=== PATIENT | female | born 1965 | race Caucasian/White ===

== ENCOUNTER 2019-11-04 02:33 | Day surgery (SDC) | payer OTHER, SELFPAY ==
[2019-10-31 15:45] VITALS: BMI 32.1
--- NOTE | 2019-11-04 07:12 | PM.HPGS ---
History of Present Illness History of Present Illness Consent: Risks, benefits, and alternatives have been discussed and questions answered. Patient agrees to proceed with procedure. Chief complaint: Neoplasm Screening Narrative: Disha Pacheco is a 54 year old W female referred for her 1st screening colonoscopy. Patient is asymptomatic. Her mother colon cancer at age 79. Brother with history of colonic polyps. [facility] Past Medical History Medical History (Updated 11/04/19 @ 07:13 by Homer Garcia MD) Anxiety and depression Surgical History Surgical History (Updated 11/04/19 @ 07:14 by Homer Garcia MD) Status post myomectomy Family History Family History Other Carcinoma of colon Social History Social History Smoking status: Never smoker Second hand tobacco smoke exposure: No Alcohol intake: current Meds Home Medications and Allergies Home Medications Medication Instructions Recorded Confirmed Type alprazolam [Xanax] 1 mg PO HS PRN 10/31/19 10/31/19 History dextroamphetamine-amphetamine 20 mg PO BID 10/31/19 10/31/19 History [Adderall XR] ropinirole 2 mg PO HS 10/31/19 10/31/19 History venlafaxine [Effexor XR] 150 mg PO DAILY 10/31/19 10/31/19 History Allergies Allergy/AdvReac Type Severity Reaction Status Date / Time No Known Allergies Allergy Verified 10/31/19 15:39 Exam Const: Orientation/consciousness: patient oriented x3 Resp: Auscultation: clear to auscultation bilaterally Cardio: Rate: regular rate Rhythm: regular rhythm Heart sounds: no murmurs GI: GI Palp: Yes Soft to palpation, No Tenderness to palpation present (GI), Yes No hepatosplenomegaly present and No Palpable mass present Auscultation: normal bowel sounds Neuro: General: patient oriented x3 and no focal motor deficits Extrem: General: no pedal edema Assessment and Plan Additional Plan screening colonoscopy in high risk patient
[2019-11-04] MEDS: LACTATED RINGERS 1,000 ML 150 ML IV CONT (07:30)
[2019-11-04 07:32] VITALS: BP 111/59; PULSE 72; RESP 18; TEMP 35.9; O2SAT 100; BMI 32.5
--- NOTE | 2019-11-04 07:42 | WPDANESEPPF ---
Anes - Initial Pre Proc Eval Procedure: Operation Date: 11/04/19 08:00 Proposed Procedures p Screening Colonoscopy - Homer Garcia MD Date/Time: 11/04/19 07:42 Surgeon: Homer Garcia MD Pre Op Diagnosis: Neoplasm Screening Patient Data Age: 54 Gender: F Height: 5 ft 4 in Weight: 86.1 kg Last Vital Signs Temp 35.9 C L 11/04/19 07:32 Pulse 72 11/04/19 07:32 Resp 18 11/04/19 07:32 BP 111/59 L 11/04/19 07:32 Pulse Ox 100 11/04/19 07:32 Allergies Allergy/AdvReac Type Severity Reaction Status Date / Time No Known Allergies Allergy Verified 11/04/19 07:30 Home Medications Medication Instructions Recorded Confirmed Type alprazolam [Xanax] 1 mg PO HS PRN 10/31/19 10/31/19 History dextroamphetamine-amphetamine 20 mg PO BID 10/31/19 10/31/19 History [Adderall XR] ropinirole 2 mg PO HS 10/31/19 10/31/19 History venlafaxine [Effexor XR] 150 mg PO DAILY 10/31/19 10/31/19 History Patient hx anesthesia problems: none Family hx anesthesia problems: none PMFSH Past Medical History Medical History Anxiety and depression Surgical History Surgical History Status post myomectomy Family History Family History Other Carcinoma of colon Social History Social History Smoking status: Never smoker Second hand tobacco smoke exposure: No Alcohol intake: current Anes - Eval Final PreProcedure Day of Procedure 11/04/19 07:42 Patient weight: obese Heart: regular rate and rhythm Lungs: clear to auscultation Airway: Mallampati scale class II Neurological: alert and oriented Last oral intake: >/= 8 hours ASA classification: II Anesthetic plan: proceed Anesthesia type and monitoring: general GIVS and standard monitoring Informed Consent: The patient's anesthetic plan and its attendant risks and benefits were discussed with the patient/family/POA. Questions were solicited and answers provided to the satisfaction of the patient/family/POA.
[2019-11-04 08:06] VITALS: BP 100/57; PULSE 66; RESP 16; O2SAT 98
[2019-11-04 08:16] VITALS: BP 110/72; PULSE 67; RESP 18; O2SAT 99
[2019-11-04 08:26] VITALS: BP 121/81; PULSE 68; RESP 16; O2SAT 99
== END 2019-11-04 08:39 | disposition home or self-care (01) ==
PROVIDERS: PCP Family Medicine; Visit Provider Internal Medicine Gastroenterology
PROC: 0DJD8ZZ Inspection of Lower Intestinal Tract, Via Natural or Artificial Opening Endoscopic (ICD-10-PCS; CPT 45378; principal; 2019-11-04 08:00)
DX: Z12.11 Encounter for screening for malignant neoplasm of colon (principal); K64.4 Residual hemorrhoidal skin tags; Z80.0 Family history of malignant neoplasm of digestive organs; F41.8 Other specified anxiety disorders; E66.9 Obesity, unspecified; Z68.32 Body mass index [BMI] 32.0-32.9, adult
CPT/HCPCS: 45378; J2704; J7120

== ENCOUNTER 2021-01-01 08:45 | Emergency (ER) | payer OTHER, SELFPAY ==
--- NOTE | ~2021-01-01 | XR_ITS ---
XR chest 1V portable DATE: 01/01/2021 09:29 INDICATION: Fever, cough for the past 10 days TECHNIQUE: Portable upright AP chest on 01/01/2021 at 0929 hours COMPARISON: None FINDINGS: Normal heart size. No hilar or mediastinal enlargement. No pulmonary infiltrate or consolid ation, pleural effusion or pulmonary vascular congestion or pneumothorax. IMPRESSION: No active cardiopulmonary disease Reviewed, dictated and finalized at location A.
[2021-01-01 08:51] VITALS: BP 147/102; PULSE 94; RESP 18; TEMP 36.6; O2SAT 99
[2021-01-01 09:06] LABS: Basophils Percent Auto 0.2 % (0.2-1.2); Hematocrit 42.5 % (37.0-47.0); Hemoglobin 14.3 g/dL (12.0-15.0); Immature Granulocyte Absolute 0.02 K/mm3 (0.00-0.031); Immature Granulocyte Percent A 0.4 % (0-0.5); Lymphocytes Absolute Auto 1.05 K/mm3 (0.9-3.2); Lymphocytes Percent Auto 19.1 % (18.3-44.2); Mean Corpuscular HGB Conc 33.6 g/dl (32-36); Mean Corpuscular Hemoglobin 30.4 pg (26-34); Mean Corpuscular Volume 90.2 fl (80-100); Monocytes Absolute Auto 0.7 K/mm3 (0.1-0.6); Monocytes Percent Auto 13.1 % (2.6-8.5); Neutrophils Absolute Auto 3.7 K/mm3 (1.3-6.7); Neutrophils Percent Auto 67.2 % (45.5-73.1); Platelet Count Result 207 k/mm3 (150-375); Red Blood Count 4.71 M/mm3 (4.2-5.4); Red Cell Distribution Width 12.2 % (11.5-14.5); White Blood Count 5.5 K/mm3 (4.5-10.0)
[2021-01-01 09:17] LABS: Alanine Aminotransferase 29 U/L (4-35); Albumin Level 4.6 g/dL (3.5-5.1); Alkaline Phosphatase 100 U/L (38-126); Anion Gap 9 mmol/L (8-16); Aspartate Amino Transferase 32 U/L (14-36); Bilirubin,Total 0.2 mg/dL (0.2-1.3); Blood Urea Nitrogen 20 mg/dL (7-17); Calcium 9.3 mg/dL (8.4-10.2); Carbon Dioxide 25 mmol/L (22-30); Chloride 104 mmol/L (98-107); Estimated CRCL calculation 54 ml/min; Estimated Glomerular Filt Rate 52; Glucose 131 mg/dL (65-105); Sodium 138 mmol/L (137-145)
[2021-01-01 09:32] LABS: Add Urine Microscopic? YES; Appearance Urine Cloudy (Clear); Bilirubin Urine Negative (Negative); Blood Urine Negative (Negative); Color Urine Yellow (Yellow); Glucose Urine UA Negative (Negative); Ketones Urine Negative (Negative); Leukocyte Esterase Ur Negative LEU/UL (Negative); Mucus Urine Heavy /lpf; Nitrate Urine Negative (Negative); Protein Urine 2+ mg/dL (Negative); RBC Urine 0-2 /hpf (0-2); Squamous Epithelial Cell Urine Rare /hpf (Few); Urobilinogen Urine Negative mg/dL (<2.0); WBC Urine 0-3 /hpf
[2021-01-01] MEDS: SODIUM CHLORIDE 0.9% IV 1,000 ML 999 ML IV CONT (09:43)
[2021-01-01 09:49] LABS: Specific Grav Ur 1.035 (1.001-1.035)
--- NOTE | 2021-01-01 09:56 | ED.GENADULT ---
HPI - General Adult General Chief complaint: Unspecified Stated complaint: bodyaches and chills, negative covid test Time Seen by Provider: 01/01/21 09:10 Source: patient Mode of arrival: ambulatory Limitations: no limitations History of Present Illness HPI narrative: This is a 55 year old female that presents to the ER for body aches x 10 days. Associated with chills. Also reports some nausea, vomiting and diarrhea yesterday. She had a negative covid swab last week. Denies fever, cough, sore throat, shortness of breath, chest pain, abdominal pain, or dysuria. Related Data Home Medications Medication Instructions Recorded Confirmed alprazolam [Xanax] 1 mg PO HS PRN 10/31/19 10/31/19 dextroamphetamine-amphetamine 20 mg PO BID 10/31/19 10/31/19 [Adderall XR] ropinirole 2 mg PO HS 10/31/19 10/31/19 venlafaxine [Effexor XR] 150 mg PO DAILY 10/31/19 10/31/19 Allergies Allergy/AdvReac Type Severity Reaction Status Date / Time No Known Allergies Allergy Verified 01/01/21 08:54 Review of Systems Review of Systems: Narrative: CONSTITUTIONAL: Denies fever ENT: Denies rhinorrhea, congestion, sore throat CARDIOVASCULAR: Denies chest pain RESPIRATORY: Denies cough or dyspnea. GASTROINTESTINAL: Reports nausea, vomiting, and diarrhea. GENITOURINARY: Denies dysuria All systems reviewed & are unremarkable except as noted in HPI and below PMFSH Past Medical History Medical History (Updated 01/01/21 @ 12:14 by Hattie Alvarado PA-C) Anxiety and depression Surgical History Surgical History Status post myomectomy Family History Family History Other Carcinoma of colon Social History Social History Smoking status: Never smoker Second hand tobacco smoke exposure: No Alcohol intake: current Exam Narrative: Exam Narrative: GENERAL: Well-appearing, well-nourished, and in no acute distress. HEAD: Normocephalic, atraumatic. EYES: EOMI. ENT: Nares clear, no rhinorrhea or epistaxis. Mucous membranes moist. Oropharynx without tonsillar hypertrophy exudate or other lesions. Bilateral TMs pearly mtz non-bulging NECK: Supple. No adenopathy or masses. CHEST: Clear to auscultation. No respiratory distress. No wheezes rales or rhonchi HEART: Regular rate and rhythm. No murmur heard. Normal peripheral pulses. ABDOMEN: Soft, nontender, nondistended, normal active bowel sounds. EXTREMITIES: Normal range of motion. No edema. SKIN: Warm, dry, no rash. NEURO: No focal deficits. Alert and oriented x3. PSYCH: Normal mood and affect Course Vital Signs Vital signs: Vital Signs Temperature 97.9 F 01/01/21 08:51 Pulse Rate 94 01/01/21 08:51 Respiratory Rate 18 01/01/21 08:51 Blood Pressure 147/102 H 01/01/21 08:51 Pulse Oximetry 99 01/01/21 08:51 Temperature 97.9 F 01/01/21 08:51 Pulse Rate 94 01/01/21 08:51 Respiratory Rate 18 01/01/21 08:51 Blood Pressure 147/102 H 01/01/21 08:51 Pulse Oximetry 99 01/01/21 08:51 Medical Decision Making MDM Narrative Medical decision making narrative: Patient presents the emergency department for body aches and chills. She is afebrile and nontoxic-appearing. CBC is without leukocytosis. Metabolic panel shows mild dehydration, patient hydrated while in the ED with IV fluids. UA without evidence of infection. Chest x-ray is clear. Influenza screen and mono screens are negative. Patient updated on case findings. She is stable and felt appropriate for further outpatient evaluation. She is to follow-up with primary care doctor. She was given warnings to return to the ER Vital Signs Vital Signs: Vital Signs Temperature 97.9 F 01/01/21 08:51 Pulse Rate 94 01/01/21 08:51 Respiratory Rate 18 01/01/21 08:51 Blood Pressure 147/102 H 01/01/21 08:51 Pulse Oximetry 99 01/01/21 08:51
[2021-01-01 11:49] LABS: Lipase 129 U/L (23-300)
[2021-01-01 12:02] LABS: Monoscreen Negative (Negative); Negative Monotest Control Negative (Negative); Positive Monotest Control Positive (Positive)
[2021-01-01 12:25] VITALS: BP 142/95; PULSE 90; RESP 17; O2SAT 99
== END 2021-01-01 12:27 | disposition home or self-care (01) ==
PROVIDERS: Physician Assistant; Emergency Provider Emergency Medicine; PCP Family Medicine
DX: M79.10 Myalgia, unspecified site (principal); F41.9 Anxiety disorder, unspecified; F32.9 Major depressive disorder, single episode, unspecified
CPT/HCPCS: 36415; 71045; 80053; 81001; 81025; 83690; 85025; 86308; 87804; 96360; 99283; J7030

== ENCOUNTER → 2021-05-16 09:54 | Outpatient (CLI) | payer OTHER, SELFPAY ==
--- NOTE | ~2021-05-16 | MM_ITS ---
EXAMINATION: MM screening ben BI w jovani HISTORY: Screening TECHNIQUE: Craniocaudal and mediolateral oblique 3-D tomosynthesis images were obtained and synthetic 2-D images were generated. CAD analysis was submitted and interpreted. COMPARISON: Comparison to multiple prior studies sequentially, with oldest reviewed study dated 12/09. BREAST PARENCHYMAL COMPOSITION: There are scattered areas of fibroglandular density. FINDINGS: There is no evidence of suspicious mass, calcification, or architectural distortion to sugg est malignancy in either breast. There has been no suspicious interval change. IMPRESSION: 1. No mammographic evidence of malignancy. 2. Recommend routine screening mammography in one year. BI-RADS Category 1: Negative Reviewed, dictated and finalized at location A.
== END ==
PROVIDERS: Visit Provider Obstetrics & Gynecology
DX: Z12.31 Encounter for screening mammogram for malignant neoplasm of breast (principal)
CPT/HCPCS: 77063; 77067

== ENCOUNTER 2022-03-08 18:49 | Emergency (ER) | payer OTHER, SELFPAY ==
[2022-03-08 19:13] VITALS: BP 136/95; PULSE 96; RESP 14; TEMP 36.9; O2SAT 99
[2022-03-08 19:20] LABS: Basophils Absolute Auto 0.1 K/mm3 (0.0-0.1); Basophils Percent Auto 0.5 % (0.2-1.2); Eosinophils Absolute Auto 0.2 K/mm3 (0-0.3); Eosinophils Percent Auto 1.9 % (0-4.4); Hematocrit 45.9 % (37.0-47.0); Hemoglobin 14.9 g/dL (12.0-15.0); Immature Granulocyte Absolute 0.02 K/mm3 (0.00-0.031); Immature Granulocyte Percent A 0.2 % (0-0.5); Lymphocytes Absolute Auto 2.68 K/mm3 (0.9-3.2); Lymphocytes Percent Auto 26.6 % (18.3-44.2); Mean Corpuscular HGB Conc 32.5 g/dl (32-36); Mean Corpuscular Hemoglobin 29.9 pg (26-34); Mean Platelet Volume 8.6 fl (7.4-10.4); Monocytes Absolute Auto 0.8 K/mm3 (0.1-0.6); Monocytes Percent Auto 7.9 % (2.6-8.5); Neutrophils Absolute Auto 6.3 K/mm3 (1.3-6.7); Neutrophils Percent Auto 62.9 % (45.5-73.1); Platelet Count Result 342 k/mm3 (150-375); Red Blood Count 4.99 M/mm3 (4.2-5.4); Red Cell Distribution Width 12.3 % (11.5-14.5); White Blood Count 10.1 K/mm3 (4.5-10.0)
[2022-03-08 19:24] LABS: Appearance Urine Clear (Clear); Bilirubin Urine Negative (Negative); Blood Urine Negative (Negative); Color Urine Yellow (Yellow); Glucose Urine UA Negative (Negative); Ketones Urine Negative (Negative); Leukocyte Esterase Ur 1+ LEU/UL (Negative); Nitrate Urine Negative (Negative); Protein Urine Negative (Negative); Specific Grav Ur 1.025 (1.001-1.035); Urobilinogen Urine 0.2 mg/dL (<2.0); pH Urine 5.5 (5.0-9.0)
[2022-03-08 19:28] LABS: Alanine Aminotransferase 29 U/L (6-35); Albumin Level 5.1 g/dL (3.5-5.1); Alkaline Phosphatase 89 U/L (38-126); Anion Gap 8 mmol/L (8-16); Aspartate Amino Transferase 30 U/L (14-36); Bilirubin,Total < 0.1 mg/dL (0.2-1.3); Blood Urea Nitrogen 25 mg/dL (7-17); Calcium 9.8 mg/dL (8.4-10.2); Carbon Dioxide 28 mmol/L (22-30); Chloride 106 mmol/L (98-107); Estimated Glomerular Filt Rate > 60; Ethanol < 10 mg/dL (<10); Glucose 105 mg/dL (65-110); Sodium 142 mmol/L (137-145)
[2022-03-08 19:31] LABS: Mucus Urine Rare /lpf; Squamous Epithelial Cell Urine Occasional /hpf (Few); WBC Urine 16-20 /hpf
[2022-03-08 19:34] LABS: Add Urine Microscopic? YES
--- NOTE | 2022-03-08 19:36 | ED.GENADULT ---
HPI - General Adult General Chief complaint: Psychiatric Symptoms Stated complaint: suicidal after almost arrested Time Seen by Provider: 03/08/22 19:08 History of Present Illness HPI narrative: Is a 56-year-old female that presents the emergency department with chief complaint of suicidal ideation. Patient reports that she has history of depression and anxiety. The patient reports that she called the police today after she was having some thoughts of hurting herself but had no defined plan. Patient reports that she is on medicines for anxiety and depression reports that she has had thoughts before in the past but it has been sometime since she been hospitalized. Patient reports symptoms are not worsened by anything or they improved by anything Review of Systems Review of Systems: A 10 system review of systems was completed on the patient and is negative except for what is stated in the HPI. Nursing and ancillary documentation was reviewed. Exam Narrative: GENERAL: Well-appearing, well-nourished, and in no acute distress. HEAD: Normocephalic, atraumatic. EYES: PERRLA and EOMI. ENT: Nares clear, no rhinorrhea or epistaxis. Mucous membranes moist. NECK: Supple. CHEST: Clear to auscultation. No respiratory distress. HEART: Regular rate and rhythm. No murmur heard. Normal peripheral pulses. ABDOMEN: Soft, nontender, nondistended, normal active bowel sounds. EXTREMITIES: Normal range of motion. No edema. SKIN: Warm, dry, no rash. NEURO: No focal deficits. Alert and oriented x3. PSYCH: Normal mood and affect. Course Course Emergency Course: Patient is medically cleared for psychiatric evaluation referral admission and transfer Patient was seen and evaluated by the can worker patient was able to contract for safety and will be able to be discharged home Vital Signs Vital signs: Vital Signs Temperature 36.9 C 03/08/22 19:13 Pulse Rate 96 03/08/22 19:13 Respiratory Rate 14 03/08/22 19:13 Blood Pressure 136/95 H 03/08/22 19:13 Pulse Oximetry 99 03/08/22 19:13 Oxygen Delivery Room Air 03/08/22 19:13 Temperature 36.9 C 03/08/22 19:13 Pulse Rate 96 03/08/22 19:13 Respiratory Rate 14 03/08/22 19:13 Blood Pressure 136/95 H 03/08/22 19:13 Pulse Oximetry 99 03/08/22 19:13 Oxygen Delivery Room Air 03/08/22 19:13 Medical Decision Making Vital Signs Vital Signs: Vital Signs Temperature 36.9 C 03/08/22 19:13 Pulse Rate 96 03/08/22 19:13 Respiratory Rate 14 03/08/22 19:13 Blood Pressure 136/95 H 03/08/22 19:13 Pulse Oximetry 99 03/08/22 19:13 Oxygen Delivery Room Air 03/08/22 19:13 Temperature 36.9 C 03/08/22 19:13 Pulse Rate 96 03/08/22 19:13 Respiratory Rate 14 03/08/22 19:13 Blood Pressure 136/95 H 03/08/22 19:13 Pulse Oximetry 99 03/08/22 19:13 Oxygen Delivery Room Air 03/08/22 19:13 Lab Data Result diagrams: 03/08/22 19:11 03/08/22 19:11 Labs: Lab Results 03/08/22 03/08/22 03/08/22 Range/Units 19:11 19:11 19:11 WBC 10.1 H (4.5-10.0) K/mm3 RBC 4.99 (4.2-5.4) M/mm3 Hgb 14.9 (12.0-15.0) g/dL Hct 45.9 (37.0-47.0) % MCV 92.0 (80-100) fl MCH 29.9 (26-34) pg MCHC 32.5 (32-36) g/dl RDW 12.3 (11.5-14.5) % Plt Count 342 (150-375) k/mm3 MPV 8.6 (7.4-10.4) fl Immature Gran % (Auto) 0.2 (0-0.5) % Neut % (Auto) 62.9 (45.5-73.1) % Lymph % (Auto) 26.6 (18.3-44.2) % [place] % (Auto) 7.9 (2.6-8.5) % Eos % (Auto) 1.9 (0-4.4) % Baso % (Auto) 0.5 (0.2-1.2) % Lymph # (Auto) 2.68 (0.9-3.2) K/mm3 [place] # (Auto) 0.8 H (0.1-0.6) K/mm3 Eos # (Auto) 0.2 (0-0.3) K/mm3 Baso # (Auto) 0.1 (0.0-0.1) K/mm3 Abs Immat Gran (auto) 0.02 (0.00-0.031) K/mm3 Absolute Neuts (auto) 6.3 (1.3-6.7) K/mm3 Absolute Nucleated RBC 0.0 (0.0-0.012) K/mm3 Nucleated RBC % 0.0 (0.0-0.2) % Sodium (137-145) mmol/L [place]
[2022-03-08 19:37] LABS: Amphetamine Screen Urine Positive (Negative); Barbiturate Screen Urine Negative (Negative); Benzodiazepines Screen Urine Positive (Negative); Cannabinoid Screen Urine Negative (Negative); Cocaine Screen Urine Negative (Negative); Methadone Screen Urine Negative (Negative); Opiate Screen Urine Negative (Negative); Phencyclidine Screen Urine Negative (Negative)
--- NOTE | 2022-03-08 20:29 | PC.NURSE ---
Per crisis, outreach analyst will be called to evaluate pt.
[2022-03-08 20:34] LABS: SARS-CoV-2 RNA PCR Negative
--- NOTE | 2022-03-08 21:16 | PC.NURSE ---
2115: Crisis Ice Cream Truck Driver arrived for evaluation.
--- NOTE | 2022-03-08 21:37 | PC.NURSE ---
Per crisis physical therapy nurse, pt will be sent home with safety plan.
[2022-03-08 22:14] VITALS: BP 136/45; PULSE 76; RESP 20; O2SAT 96
== END 2022-03-08 22:15 | disposition home or self-care (01) ==
PROVIDERS: Emergency Medicine; Emergency Provider Emergency Medicine
DX: F41.9 Anxiety disorder, unspecified (principal); F32.A Depression, unspecified; N39.0 Urinary tract infection, site not specified; Z20.822 Contact with and (suspected) exposure to COVID-19
CPT/HCPCS: 36415; 80053; 80307; 81001; 81025; 84443; 85025; 87086; 87088; 99284; C9803; U0003; U0005

== ENCOUNTER 2025-01-18 13:30 | Outpatient (CLI) | payer OTHER, SELFPAY ==
--- NOTE | ~2025-01-18 | MM_ITS ---
EXAMINATION: MM screening ben BI w jovani HISTORY: Screening TECHNIQUE: Craniocaudal and mediolateral oblique 3-D tomosynthesis images were obtained and synthetic 2-D images were generated. CAD analysis was submitted and interpreted. COMPARISON: Comparison to multiple prior studies sequentially, with oldest reviewed study dated 03/2016. BREAST PARENCHYMAL COMPOSITION: Not dense: There are scattered areas of fibroglandular density. FINDINGS: There is no evidence of suspicious mass, calcification, or architectural distortion to sugg est malignancy in either breast. There has been no suspicious interval change. IMPRESSION: 1. No mammographic evidence of malignancy. 2. Recommend routine screening mammography in one year. BI-RADS Category 1: Negative Reviewed, dictated and finalized at location A.
--- OUTSIDE RECORDS SUMMARY | 2025-01-18 13:42 | XMS_ITS | Encounter Summary ---
Author Organization [facility] Address 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
--- OUTSIDE RECORDS SUMMARY | 2025-01-18 13:42 | XMS_ITS | Encounter Summary ---
Author Organization [facility] Address 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
--- OUTSIDE RECORDS SUMMARY | 2025-01-18 13:42 | XMS_ITS | Clinical Summary ---
Author Organization [facility] Address [address] [place] [address] Care Team Providers Care Senior Research Project Manager Name Role Phone Unavailable Primary Care Provider Unavailabl e Source Comments [facility],non-owned Affiliates and Associated Physician Practices is amultiple site organization consisting of ambulatory clinics and hospital sitesin [place], [place], [place] and [place]. This disclosure is being madepursuant to the Care Everywhere program and may not contain all information available regarding this patient. Last updated 18.[facility] Allergies No known active allergies Medications * Be aware that medications may not be up to date on this document. Alwaysverify current medications with the patient. citalopram (CELEXA) 40 MG tablet Take 40 mg by mouth once daily. Active amphetamine-dex troamphetamine (ADDERALL) 20 MG tablet Take 20 mg by mouth every morning. Active Other Acne med could not recall name Active Other Medication for Restless leg syndrome, could not recall name Active Active Problems Problem Noted Date Diagnosed Date Abnormal vaginal bleeding 05/03/2013 Overview (05/03/2013): States bleeding can last two to three weeks out of the month Family History Medical History Relation Name Comments Heart Disease Father Hypertension Father Cancer Mother colon Relation Name Status Comments Father Mother Social History Tobacco Use Types Packs/Day Years Used Date Smoking Tobacco: Never Alcohol Use Standard Drinks/Week Comments Yes 0 (1 standard drink = 0.6 oz pur e alcohol) Comments No Sex and Gender Information Value Date Recorded Sex Assigned at Not on file Legal Sex Female 10:31 AM CDT Gender Identity Not on file Sexual Orientation Not on file Last Filed Vital Signs Vital Sign Reading Time Taken Comments Blood Pressure 128/72 05/30/2013 10:32 AM CDT Pulse 72 05/30/2013 10:32 AM CDT Temperature - - Respiratory Rate - - Oxygen Saturation - - Inhaled Oxygen Concentration - - Weight 83.5 kg (184 lb) 05/30/2013 10:32 AM CDT Height 170.2 cm (5' 7 ) 05/30/2013 10:32 AM CDT Body Mass Index 28.82 05/30/2013 10:32 AM CDT Plan of Treatment Health Maintenance Due Date Last Done Comments COLOGUARD (AGES 45-75) - COL ON CA SCREENING 1967 COLON MONITORING 1967 COLONOSCOPY - COLON CA SCREENING 1967 CT COLONOGRAPHY - COLON CA SCREENING 1967 Colorectal Cancer Screening 1967 FIT - COLON CA SCREENING 1967 FLEX SIG - COLON CA SCREENING 1967 LIPID TESTING 1967 MAMMOGRAM 1967 HIV SCREENING 1982 HEPATITIS C SCREENING 06/26/1985 DTAP/TDAP/TD VACCINES (1 - Tdap) 1986 HEPATITIS B VACCINE (1 of 3 - 19+ 3-dose series) 1986 PNEUMOCOCCAL VACCINE 50+ (1 of 1 - PCV) 2017 ZOSTER VACCINE (1 of 2) 2017 COVID-19 VACCINE ( - 2023-2 5 season) 2024 DEPRESSION SCREENING 09/14/2024 INFLUENZA VACCINE (Season Ended) 2025 HIB VACCINE Aged Out No longer eligi ble based on patient's age to complete this topic HPV VACCINE Aged Out No longer eligi ble based on patient's age to complete this topic MENINGOCOCCAL (Group B) VACC INE SHARED DECISION-MAKING Aged Out No longer eligibl e based on patient's age to complete this topic MENINGOCOCCAL GROUPS A/C/Y/W VACCINE Aged Out No longer eligible b ased on patient's age to complete this topic Insurance [employer] [facility] Address: [facility] [id number] [place] [address]
--- OUTSIDE RECORDS SUMMARY | 2025-01-18 13:42 | XMS_ITS | Clinical Summary ---
Author Organization [facility] Address [address] [place] [address] Dr. 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
--- OUTSIDE RECORDS SUMMARY | 2025-01-18 13:42 | XMS_ITS | Encounter Summary ---
Author Organization [facility] Address [address] [place] [address] Care Team Providers Care Oxygen Therapist Name Role Phone Unavailable Primary Care Provider Unavailabl e Encounter Details Date Type Department Care Team (Late st Contact Info) Description 08/18/2005 Outpatient Historical [facility] Maternal and Ground Floor [address] [facility] [address] [place] [address] [place] [id number] Eliseo Darden MD NO ADDRESS ON FILE Social History Tobacco Use Types Packs/Day Years Used Date Smoking Tobacco: Never Assessed Comments Unknown Sex and Gender Information Value Date Recorded Sex Assigned at Not on file 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
--- OUTSIDE RECORDS SUMMARY | 2025-01-18 13:42 | XMS_ITS | Encounter Summary ---
Author Organization [facility] Address [address] [place] [address] Care Team Providers Care Mottle Lay Up Operator Name Role Phone Unavailable Primary Care Provider Unavailabl e Encounter Details Date Type Department Care Team (Late st Contact Info) Description 08/25/2005 Outpatient [facility] Emery Jacobson MD NO ADDRESS ON FILE Social History Tobacco Use Types Packs/Day Years Used Date Smoking Tobacco: Never Assessed Comments Unknown Sex and Gender Information Value Date Recorded Sex Assigned at Not on file Legal Sex Female 3:39 AM NEWS CONTENT SPECIALIST Gender Identity Not on file Sexual Orientation Not on file documented as of this encounter Plan of Treatment Not on file documented as of this encounter Visit Diagnoses Not on filedocumented in this encounter
--- OUTSIDE RECORDS SUMMARY | 2025-01-18 13:42 | XMS_ITS | Encounter Summary ---
Author Organization [facility] Address [address] [place] [address] Care Team Providers Care Quality Assurance Calibrator Name Role Phone Unavailable Primary Care Provider Unavailabl e Encounter Details Date Type Department Care Team (Late st Contact Info) Description 08/28/2003 Outpatient Historical [facility] Maternal and Ground Floor S [facility] [address] [place] [address] Diego Ruiz MD [facility] [place] [address] Social History Tobacco Use Types Packs/Day Years Used Date Smoking Tobacco: Never Assessed Comments Unknown Sex and Gender Information Value Date Recorded Sex Assigned at Not on file Legal Sex Female 3:39 AM 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
--- OUTSIDE RECORDS SUMMARY | 2025-01-18 13:42 | XMS_ITS | Encounter Summary ---
Author Organization [facility] Address [address] [place] [address] Care Team Providers Care Sporting Goods Salesperson Name Role Phone Unavailable Primary Care Provider Unavailabl e Encounter Details Date Type Department Care Team (Late st Contact Info) Description 07/24/2005 Outpatient Historical [facility] Maternal and Ground Floor S [facility] [address] [place] [address] Diego Ruiz MD [facility] [place] [address] Social History Tobacco Use Types Packs/Day Years Used Date Smoking Tobacco: Never Assessed Comments Unknown Sex and Gender Information Value Date Recorded Sex Assigned at Not on file 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
== END 2025-01-18 13:31 | disposition home or self-care (01) ==
PROVIDERS: PCP Family Medicine; Visit Provider Obstetrics & Gynecology
DX: Z12.31 Encounter for screening mammogram for malignant neoplasm of breast (principal)
CPT/HCPCS: 77063; 77067